=== PATIENT | male | born 1980 | race Two or more races ===

== ENCOUNTER → 2019-08-04 | Emergency (ER) | payer SELFPAY ==
[~2019-08-04] VITALS: Ht 175.3 cm; Wt 86.2 kg
[~2019-08-04] MED LIST: LIDOCAINE 1% HCL (LOCAL ANESTH.) INJ 20ML MDV ID ONE; MORPHINE SULFATE 4 MG/ML SYR/VIAL IV ONE; ONDANSETRON HCL 4 MG/2 ML VIAL IV ONE
[2019-08-04 22:15] VITALS: BP 143/70
== END | disposition home or self-care (01) ==
LOC: ER 20:56
DX: S63.259A Unspecified dislocation of unspecified finger, initial encounter (principal); W01.0XXA Fall on same level from slipping, tripping and stumbling without subsequent striking against object, initial encounter; Y93.89 Activity, other specified; Y99.8 Other external cause status; Y92.89 Other specified places as the place of occurrence of the external cause
CPT/HCPCS: 26770; 73130; 96374; 96375; 99284; J2001; J2270; J2405